=== PATIENT | male | born 1950 | race Caucasian/White ===

== ENCOUNTER 2018-09-02 10:32 | Inpatient (IN) | payer OTHER ==
[~2018-09-02] VITALS: Ht 175.3 cm; Wt 90.7 kg
[2018-09-20] MEDS ORDERED: OXYC1TAB9 PO (08:34)
[2018-09-20] MEDS ORDERED: INTESTINEX680 M1 PO (08:35)
== END 2018-09-20 09:41 | disposition home or self-care (01) | DRG 331 ==
LOC: SURG 09-17 05:11 → O/R 09-17 05:11 → SURH 09-17 07:00 → SURG 09-17 13:09
PROVIDERS: Surgery
PROC: 0DJD8ZZ Inspection of Lower Intestinal Tract, Via Natural or Artificial Opening Endoscopic (ICD-10-PCS; 2018-09-17)
PROC: 0DTN4ZZ Resection of Sigmoid Colon, Percutaneous Endoscopic Approach (ICD-10-PCS; principal; 2018-09-17 07:00)
DX: K57.32 Diverticulitis of large intestine without perforation or abscess without bleeding (principal); R73.01 Impaired fasting glucose

== ENCOUNTER 2019-10-01 06:10 | Day surgery (SDC) | payer OTHER ==
[~2019-10-01 06:10] MED LIST: INTESTINEX680 M1 PO; OXYC1TAB9 PO
== END 2019-10-01 11:00 | disposition home or self-care (01) ==
LOC: AMB-ENDOS 06:10
DX: D12.2 Benign neoplasm of ascending colon (principal); D12.3 Benign neoplasm of transverse colon